=== PATIENT | female | born 1955 ===

== ENCOUNTER 2023-08-05 09:23 | Outpatient (CLI) | payer MEDICARE | END 2023-08-05 09:24 | disposition home or self-care (01) | LOC: CSHWCC 09:23 | PROVIDERS: ATTEND Nurse Practitioner Family | DX: Z48.815 Encounter for surgical aftercare following surgery on the digestive system (principal); Z93.2 Ileostomy status | CPT/HCPCS: 97139; G0463; 99203 ==